=== PATIENT | female | born 1980 | race Caucasian/White ===

== ENCOUNTER 2019-12-26 16:11 | Inpatient (IN) ==
[2019-12-26 18:30] LABS: Basophils % 0.3 % (0.0-0.8); Eosinophils # 0.1 10*3/uL (0.0-0.87); Eosinophils % 0.7 % (0.00-10.9); Hematocrit 39.4 VOL% (35.7-47.0); Hemoglobin 12.7 GM/DL (12.0-16.0); Immature Granulocytes % 0.4 %; Immature Granulocytes Absolute 0.05 #; Lymphocytes # 2.2 10*3/uL (1.4-4.0); Lymphocytes % 18.1 % (21.3-54.2); Mean Corpuscular HGB Conc 32.2 GM/DL (32-36); Mean Platelet Volume 10.6 FL (9.6-12.0); Monocytes % 6.2 % (1.7-12.7); Neutrophils % 74.3 % (38.7-73.9); Platelet Count 354 T/CUMM (130-400); Red Blood Count 4.06 MC/CUMM (3.8-5.5); Red Cell Distribution Width 13.4 % (9.3-17.3); White Blood Count 12.2 T/CUMM (4-12)
[2019-12-26] MEDS ORDERED: LACTATED RINGERS 1,000 ML IV SCH (18:30)
[2019-12-26 18:46] LABS: INR 0.8; PT Patient Result 9.2 SECS (9.6-12.2); Partial Thromboplastin Time 26.4 SECS (20.8-36.0)
[2019-12-26 18:50] LABS: Alanine Aminotransferase 14 U/L (13-56); Albumin 2.8 G/DL (3.4-5.0); Alkaline Phosphatase 73 U/L (45-117); Aspartate Amino Transferase 11 U/L (0-37); Bilirubin,Direct < 0.050 MG/DL (0.0-0.20); Bilirubin,Total < 0.39 MG/DL (0.2-1.0); Blood Urea Nitrogen 12 MG/DL (7-18); Calcium 9.3 MG/DL (8.5-10.1); Estimated Glom Filtration Rate 105 ML/MIN; Glucose 80 MG/DL (74-106); Osmolality,Calculated 268.1 MOS/KG (273-304); Total Protein 7.4 G/DL (6.4-8.3); Uric Acid 6.1 MG/DL (2.6-6.0)
[2019-12-26] MEDS ORDERED: hydrALAZINE 20 MG/1 ML VIAL IV ONE (20:49)
[2019-12-26] MEDS ORDERED: MEPERIDINE 25 MG/1 ML VIAL IV ONE (20:50)
[2019-12-26] MEDS ORDERED: PROMETHAZINE 25 MG/1 ML VIAL IM ONE (20:51)
[2019-12-27] MEDS ORDERED: MEPERIDINE 50 MG/1 ML VIAL IV PRN
[2019-12-27] MEDS ORDERED: ONDANSETRON 4 MG/2 ML VIAL IV PRN
[2019-12-27] MEDS ORDERED: BUTORPHANOL 2 MG/ML VIAL IV PRN
[2019-12-27] MEDS ORDERED: OXYTOCIN/LR 20 UNIT/1,000 ML BAG IV SCH (07:00)
[2019-12-27] MEDS ORDERED: CITRIC ACID/SODIUM CITRATE 30 ML UDCUP PO ONE (07:14)
[2019-12-27] MEDS ORDERED: hydrOXYzine HCL 25 MG/1 ML VIAL IM PRN (07:14)
[2019-12-27] MEDS ORDERED: NALOXONE 0.4 MG/ML VIAL IV PRN (07:14)
[2019-12-27] MEDS ORDERED: diphenhydrAMINE 50 MG/1 ML VIAL IV PRN ×2 (07:14)
[2019-12-27] MEDS ORDERED: PROMETHAZINE 25 MG/1 ML VIAL IM ONE (07:14)
[2019-12-27] MEDS ORDERED: FAMOTIDINE 20 MG/2 ML VIAL IV ONE (07:14)
[2019-12-27] MEDS ORDERED: LACTATED RINGERS 250 ML IV PRN (07:14)
[2019-12-27] MEDS ORDERED: ePHEDrine 50 MG/ML AMP IV PRN (07:14)
[2019-12-27] MEDS ORDERED: LACTATED RINGERS 1,000 ML IV ONE (07:14)
[2019-12-27] MEDS ORDERED: fentaNYL 2 MCG/ROPIV 0.2% EPID 100 ML EPIDURAL SCH (07:30)
[2019-12-27] MEDS ORDERED: LACTATED RINGERS 1,000 ML IV SCH (07:30)
[2019-12-27 09:16] LABS: Apearance,Urine CLEAR (Clear); Bilirubin,Urine Negative (Negative); Blood, Urine Negative (Negative); Glucose,Urine (UA) Negative (Negative); Ketones,Urine Negative (Negative); Mucus,Urine Occasional /LPF (Occasional); Nitrite,Urine Negative (Negative); Protein,Urine Negative; RBC,Urine <1 /HPF (0-4); Urine Color Yellow (Yellow); Urine Specific Gravity 1.017 (1.001-1.035); Urine Urobilinogen < 2.0 EU/DL (0.2-1.0); WBC,Urine <1 /HPF (0-6)
[2019-12-27] MEDS ORDERED: miSOPROStoL 200 MCG TABLET ONE (10:51)
[2019-12-27] MEDS ORDERED: OXYTOCIN/LR 30 UNIT/1,000 ML BAG IV ONE (10:51)
[2019-12-27] MEDS ORDERED: LIDOCAINE 1% 50 ML VIAL ONE (10:51)
[2019-12-27] MEDS ORDERED: CARBOPROST TROMETHAMINE 250 MCG/ML AMP IM ONE (10:52)
[2019-12-27 12:40] LABS: Cord Venous Blood HCO3 17.9 MMOL/L; Cord Venous Blood PCO2 40.5 MMHG; Cord Venous Blood PO2 25.8
[2019-12-27] MEDS ORDERED: OXYTOCIN/LR 20 UNIT/1,000 ML BAG IV ONE (15:16)
[2019-12-27] MEDS ORDERED: oxyCODONE/ACETAMINOPHEN 5-325 MG TABLET PO PRN ×2 (15:49→15:50)
[2019-12-27] MEDS: IBUPROFEN 800 MG TABLET PO PRN (20:21)
[2019-12-27] MEDS: DOCUSATE SODIUM 100 MG CAPSULE PO SCH (20:21)
[2019-12-27] MEDS: FLUTICASONE 50 MCG NASAL SPRAY 16 GM BOTTLE BOTH NARES SCH (20:42)
[2019-12-28] MEDS: IBUPROFEN 800 MG TABLET PO PRN ×2 (03:18→21:26)
[2019-12-28 07:33] LABS: Basophils # 0.1 10*3/uL (0.0-0.2); Basophils % 0.5 % (0.0-0.8); Eosinophils # 0.1 10*3/uL (0.0-0.87); Eosinophils % 0.6 % (0.00-10.9); Hematocrit 31.4 VOL% (35.7-47.0); Immature Granulocytes % 0.5 %; Immature Granulocytes Absolute 0.06 #; Lymphocytes # 2.9 10*3/uL (1.4-4.0); Lymphocytes % 21.6 % (21.3-54.2); Mean Corpuscular HGB Conc 32.8 GM/DL (32-36); Mean Corpuscular Volume 96.9 FL (87-102); Mean Platelet Volume 10.7 FL (9.6-12.0); Monocytes % 5.3 % (1.7-12.7); Neutrophils % 71.5 % (38.7-73.9); Red Cell Distribution Width 13.7 % (9.3-17.3); White Blood Count 13.3 T/CUMM (4-12)
[2019-12-28 07:36] LABS: Hemoglobin 10.3 GM/DL (12.0-16.0); Platelet Count 265 T/CUMM (130-400); Red Blood Count 3.24 MC/CUMM (3.8-5.5)
[2019-12-28] MEDS: FLUTICASONE 50 MCG NASAL SPRAY 16 GM BOTTLE BOTH NARES SCH (09:37)
[2019-12-28] MEDS: DOCUSATE SODIUM 100 MG CAPSULE PO SCH ×2 (09:37→21:25)
[2019-12-28] MEDS: LABETALOL 200 MG TABLET PO SCH (20:30)
[2019-12-29] MEDS: DOCUSATE SODIUM 100 MG CAPSULE PO SCH ×2 (09:53→22:13)
[2019-12-29] MEDS: LABETALOL 200 MG TABLET PO SCH (09:54)
[2019-12-29] MEDS ORDERED: INFLUENZA VIRUS VACCINE 0.5 ML SYRINGE IM ONE (10:04)
[2019-12-29] MEDS ORDERED: DIPH/TET/ACEL PERT BOOSTER VACCINE 0.5 ML VIAL IM ONE (10:05)
[2019-12-29] MEDS ORDERED: FUROSEMIDE 40 MG TABLET PO ONE (14:08)
[2019-12-29] MEDS ORDERED: LORazepam 0.5 MG TABLET PO PRN (14:08)
[2019-12-29] MEDS: LORazepam 1 MG TABLET PO PRN ×2 (14:27→22:13)
[2019-12-29] MEDS: ACETAMINOPHEN 500 MG TABLET PO PRN (16:27)
[2019-12-29] MEDS: FLUTICASONE 50 MCG NASAL SPRAY 16 GM BOTTLE BOTH NARES SCH (16:31)
[2019-12-30] MEDS: ACETAMINOPHEN 500 MG TABLET PO PRN (08:00)
[2019-12-30] MEDS: FLUTICASONE 50 MCG NASAL SPRAY 16 GM BOTTLE BOTH NARES SCH (09:00)
[2019-12-30 09:16] VITALS: BP 154/81
[2019-12-30] MEDS: DOCUSATE SODIUM 100 MG CAPSULE PO SCH (09:32)
== END 2019-12-30 11:40 | disposition home or self-care (01) | DRG 807 ==
LOC: N.LDOUT 16:11 → N.LD 16:13 → N.OB 12-27 15:15
PROVIDERS: ADMIT Obstetrics & Gynecology; ATTEND Obstetrics & Gynecology

== ENCOUNTER 2021-10-30 09:36 | Inpatient (IN) ==
[2021-10-30] MEDS ORDERED: ONDANSETRON 4 MG/2 ML VIAL IV PRN ×2 (09:55→12:12)
[2021-10-30] MEDS ORDERED: MEPERIDINE 50 MG/1 ML VIAL IV PRN (09:55)
[2021-10-30] MEDS ORDERED: BUTORPHANOL 2 MG/ML VIAL IV PRN (09:55)
[2021-10-30] MEDS ORDERED: NALOXONE 0.4 MG/ML VIAL IV PRN (10:00)
[2021-10-30] MEDS ORDERED: CITRIC ACID/SODIUM CITRATE 30 ML UDCUP PO ONE (10:00)
[2021-10-30] MEDS ORDERED: OXYTOCIN/LR 20 UNIT/1,000 ML BAG IV SCH (10:00)
[2021-10-30] MEDS ORDERED: fentaNYL 2 MCG/ROPIV 0.2% EPID 100 ML EPIDURAL SCH (10:00)
[2021-10-30] MEDS ORDERED: PROMETHAZINE 25 MG/1 ML VIAL IM PRN (10:00)
[2021-10-30] MEDS ORDERED: ePHEDrine 50 MG/ML VIAL IV PRN (10:00)
[2021-10-30] MEDS ORDERED: FAMOTIDINE 20 MG/2 ML VIAL IV ONE (10:00)
[2021-10-30] MEDS ORDERED: diphenhydrAMINE 50 MG/1 ML VIAL IV PRN (10:00)
[2021-10-30] MEDS ORDERED: hydrOXYzine HCL 25 MG/1 ML VIAL IM PRN (10:00)
[2021-10-30] MEDS: LACTATED RINGERS 1,000 ML IV SCH ×2 (10:05→10:35)
[2021-10-30 10:17] LABS: Basophils % 0.4 % (0.0-0.8); Eosinophils # 0.1 10*3/uL (0.0-0.87); Eosinophils % 0.5 % (0.00-10.9); Hematocrit 37.2 VOL% (35.7-47.0); Hemoglobin 12.5 GM/DL (12.0-16.0); Immature Granulocytes % 0.4 %; Immature Granulocytes Absolute 0.04 #; Lymphocytes # 2.3 10*3/uL (1.4-4.0); Lymphocytes % 22.9 % (21.3-54.2); Mean Corpuscular HGB Conc 33.6 GM/DL (32-36); Mean Corpuscular Volume 90.7 FL (87-102); Mean Platelet Volume 10.3 FL (9.6-12.0); Monocytes % 5.4 % (1.7-12.7); Neutrophils % 70.4 % (38.7-73.9); Platelet Count 350 T/CUMM (130-400); Red Cell Distribution Width 13.4 % (9.3-17.3); White Blood Count 10.1 T/CUMM (4-12)
[2021-10-30 10:39] LABS: Alanine Aminotransferase 11 U/L (13-56); Albumin 2.6 G/DL (3.4-5.0); Alkaline Phosphatase 149 U/L (45-117); Aspartate Amino Transferase 12 U/L (0-37); Bilirubin,Total < 0.39 MG/DL (0.20-1.00); Blood Urea Nitrogen 10 MG/DL (7-18); Calcium 8.4 MG/DL (8.5-10.1); Carbon Dioxide 16 MMOL/L (21-32); Estimated Glom Filtration Rate 87 ML/MIN; Glucose 100 MG/DL (74-106); Potassium 3.5 MMOL/L (3.5-5.1); Sodium 136 MMOL/L (136-145); Total Protein 7.3 G/DL (6.4-8.2)
[2021-10-30] MEDS ORDERED: OXYTOCIN/LR 30 UNIT/1,000 ML BAG IV ONE (10:58)
[2021-10-30] MEDS ORDERED: miSOPROStoL 200 MCG TABLET ONE (10:59)
[2021-10-30] MEDS ORDERED: CARBOPROST TROMETHAMINE 250 MCG/ML AMP IM ONE (11:00)
[2021-10-30] MEDS ORDERED: METHYLERGONOVINE 0.2 MG/1 ML AMP ONE (11:00)
[2021-10-30] MEDS ORDERED: LIDOCAINE 1% 50 ML VIAL ONE (11:40)
[2021-10-30 12:06] LABS: Cord Venous Blood HCO3 19.4 MMOL/L; Cord Venous Blood PCO2 32.7 MMHG; Cord Venous Blood PO2 27.9 MMHG
[2021-10-30] MEDS ORDERED: IBUPROFEN 800 MG TABLET PO PRN (12:12)
[2021-10-30] MEDS ORDERED: RHO(D) IMMUNE GLOBULIN 300 MCG SYRINGE IM ONE (12:12)
[2021-10-30] MEDS ORDERED: OXYTOCIN/LR 20 UNIT/1,000 ML BAG IV ONE (12:12)
[2021-10-30] MEDS ORDERED: WITCH HAZEL PADS 100/JAR TOP PRN (12:12)
[2021-10-30] MEDS ORDERED: LANOLIN 50% CREAM 0.3 OZ TUBE TOP PRN (12:12)
[2021-10-30] MEDS ORDERED: HYDROCORTISONE 2.5% RECTAL CREAM 30 GM TUBE TOP PRN (12:12)
[2021-10-30] MEDS ORDERED: BENZOCAINE 20%/MENTHOL 0.5% SPRAY 56 GM CAN TOP PRN (12:12)
[2021-10-30] MEDS ORDERED: MEASLES/MUMPS/RUBELLA VACCINE 0.5 ML VIAL SUBCUT ONE (12:12)
[2021-10-30] MEDS ORDERED: DIPH/TET/ACEL PERT BOOSTER VACCINE 0.5 ML VIAL IM ONE (12:12)
[2021-10-30] MEDS ORDERED: oxyCODONE/ACETAMINOPHEN 5-325 MG TABLET PO PRN ×2 (12:12)
[2021-10-30] MEDS ORDERED: ACETAMINOPHEN 325 MG TABLET PO PRN (12:12)
[2021-10-30] MEDS ORDERED: BISACODYL 10 MG SUPP RECTAL PRN (12:12)
[2021-10-30] MEDS: DOCUSATE SODIUM 100 MG CAPSULE PO SCH (20:15)
[2021-10-31 05:41] LABS: Basophils % 0.3 % (0.0-0.8); Eosinophils % 0.3 % (0.00-10.9); Hematocrit 30.7 VOL% (35.7-47.0); Hemoglobin 9.9 GM/DL (12.0-16.0); Immature Granulocytes % 0.6 %; Immature Granulocytes Absolute 0.07 #; Lymphocytes # 2.8 10*3/uL (1.4-4.0); Lymphocytes % 24.6 % (21.3-54.2); Mean Corpuscular HGB Conc 32.2 GM/DL (32-36); Mean Corpuscular Volume 94.2 FL (87-102); Monocytes % 7.2 % (1.7-12.7); Platelet Count 247 T/CUMM (130-400); Red Blood Count 3.26 MC/CUMM (3.8-5.5); Red Cell Distribution Width 13.5 % (9.3-17.3); White Blood Count 11.5 T/CUMM (4-12)
[2021-10-31] MEDS: DOCUSATE SODIUM 100 MG CAPSULE PO SCH ×2 (09:15→21:09)
[2021-10-31] MEDS: SERTRALINE 50 MG TABLET PO SCH (16:29)
[2021-10-31] MEDS ORDERED: NIFEdipine 10 MG CAPSULE PO ONE (17:19)
[2021-11-01 07:48] VITALS: BP 141/82
[2021-11-01] MEDS: DOCUSATE SODIUM 100 MG CAPSULE PO SCH (09:38)
[2021-11-01] MEDS: SERTRALINE 50 MG TABLET PO SCH (09:38)
[2021-11-01] MEDS ORDERED: INFLUENZA VIRUS VACCINE 0.5 ML SYRINGE IM ONE (11:28)
== END 2021-11-01 12:35 | disposition home or self-care (01) | DRG 807 ==
LOC: N.OBOUT 09:36 → N.LD 09:39
PROVIDERS: ADMIT Obstetrics & Gynecology; ATTEND Obstetrics & Gynecology